=== PATIENT | female | born 2000 | race Caucasian/White ===

== ENCOUNTER 2023-09-29 04:39 | Emergency (ER) | payer OTHER, SELFPAY ==
[2023-09-29 04:41] VITALS: BP 124/80
[2023-09-29 05:05] VITALS: BMI 31.1
[2023-09-29 05:12] VITALS: BP 117/73
[2023-09-29 05:18] VITALS: BP 117/73
[2023-09-29 05:19] LABS: % Basophils 0.3 % (0-2); % Eosinophils 1.8 % (0-6); % Immature Granulocytes 0.3 % (0-0.5); % Lymphocytes 28.7 % (20.5-51.1); % Monocytes 7.5 % (1.7-9.3); % Neutrophils 61.4 % (42.2-75.2); Absolute Eosinophils 0.2 10^3/uL (0-0.7); Absolute Lymphocytes 2.6 10^3/uL (1.2-3.4); Absolute Monocytes 0.7 10^3/uL (0.1-0.6); Absolute Neutrophils 5.5 10^3/uL (1.4-6.5); Hematocrit 38.3 % (37.0-47.0); Hemoglobin 13.3 g/dL (12.0-16.0); Mean Corp Hgb Conc. 34.7 g/dL (33.0-37.0); Mean Corpuscular Hgb 30.4 pg (27.0-31.0); Mean Corpuscular Volume 87.4 fL (81.0-99.0); Mean Platelet Volume 8.5 fL (7.4-10.4); Nucleated Red Blood Cells % 0 %; Platelet Count 198 10^3/uL (130-400); Red Blood Cell Count 4.38 10^6/uL (4.20-5.40); Red Cell Dist. Width 13.2 % (11.5-14.5)
[2023-09-29 05:44] LABS: Troponin I < 0.012 ng/ml
[2023-09-29 05:51] LABS: AST (SGOT) 18 U/L (14-36); Albumin 4.1 g/dl (3.5-5.0); Blood Urea Nitrogen 12 mg/dl (7-17); Calcium 9.4 mg/dl (8.4-10.2); Carbon Dioxide 23 mmol/L (22-30); Chloride 106 mmol/L (98-107); Estimated Creatinine Clearance 91 ml/min; Glucose 106 mg/dl (70-99); Potassium 3.2 mmol/L (3.5-5.1); Sodium 137 mmol/L (135-145); Total Bilirubin 0.4 mg/dl (0.2-1.3); Total Protein 6.7 g/dl (6.3-8.2); eGFR > 60.00
[2023-09-29 05:55] LABS: HCG, Serum Qualitative Screen Negative
[2023-09-29 06:00] VITALS: BP 115/71
--- NOTE | 2023-09-29 06:02 | ED.GENMED ---
History of Present Illness
General
Chief Complaint: Chest Pain
Time Seen by Provider: 09/29/23 06:01
Travel History
Have you had any contact with someone who has COVID-19?: No
Do you have any symptoms of coronavirus? Fever > 100 degrees, chills, cough, shortness of breath, sore throat, loss of taste or smell, muscle aches, or headache?: No
History of Present Illness
History of Present Illness:
HPI: The patient went to bed at 1:30 AM and woke due to left-sided chest pain that radiates to the back at about 4 AM. The pain was more severe earlier but is now improved. She also reports dizziness however the dizziness is a chronic issue. She
tried taking her and heartburn medication earlier. She has no significant shortness of breath. The pain is reproducible.
EXAM:
GENERAL: Well appearing in no distress
HEENT: Moist oral mucosa
CARDIOVASCULAR: No murmurs, normal heart rate, regular rhythm, moderate left anterior chest wall tenderness
PULMONARY: No respiratory distress, breath sounds are clear and equal
ABDOMEN: Soft with no peritoneal signs, no tenderness
BACK: There is moderate left upper back soft tissue tenderness
NEUROLOGIC: Excellent strength all extremities, no coordination deficits
PSYCHIATRIC: Appropriate mental status, normal insight and judgement
EXTREMITIES: Nontender, no edema, moves all extremities equally
SKIN: No rash, no lesions
TIME OF INITIAL ENCOUNTER: 6:05 AM
NUMBER AND COMPLEXITY OF PROBLEMS ADDRESSED AT THE ENCOUNTER
� Chronic conditions affecting care: Chronic dizziness
� Acute Exacerbation and/or Progression of Chronic Illness: This is an acute problem
� Differential Diagnosis includes: Costochondritis, chest wall pain, GERD, very low likelihood of ACS, vital signs not consistent with PE
AMOUNT AND/OR COMPLEXITY OF DATA TO BE REVIEWED AND ANALYZED
� I performed an independent evaluation of and my interpretation is:
EKG: Sinus 76, normal axis, no acute ST abnormality, no old to compare
CT:
X-rays: I see no acute abnormality on chest x-ray
Laboratory Studies: CBC, chemistries except for potassium 3.2 are normal, troponin negative
Other:
� Review of other/old records: I look at old records�the patient has not been to the ED since 2007; no recent lab work
� Clinical information was obtained by an independent historian: None needed
� Prescriptions/Medications Considered but not given:
� Further testing considered but not performed:
RISK OF COMPLICATIONS AND/OR MORBIDITY OR MORTALITY OF PATIENT MANAGEMENT
� Social determinants of health affecting care: Lives at home
� Discussion with other providers:
� Escalation of care including admission/observation vs risk of discharge considered: The patient presents with reproducible chest/back pain. Toradol was given. Will also check chest x-ray. Very low suspicion for ACS�troponin
EKG unremarkable. I reassessed patient at 7:48 AM, the patient appears fairly comfortable. She thinks there may have been some improvement after Toradol was given.
Phy Exam
Physical Exam
Physical Exam:
See HPI
Scores
Heart Score for Chest Pain Patients
STEMI patient?: Not applicable
Course
Orders/Labs/Results
Orders:
Orders
09/29/23 04:47
Electrocardiogram (*1) Urgent
Reason for Study: Chest Pain
EKG- Treatment ONCE
09/29/23 05:05
Cardiac Monitoring- Treatment ONCE
Test Result ONCE
09/29/23 05:06
CMP [Comprehensive Metabolic Panel] Urgent
Complete Blood Count/With Diff Urgent
HCG, Serum Qualitative Screen Urgent
Troponin I Urgent
09/29/23 06:04
Potassium Chloride [KCl] 40 meq PO NOW STA
09/29/23 06:10
Famotidine [Pepcid] 20 mg IV NOW STA
Ketorolac [Toradol] 15 mg IV NOW STA
CR Chest - 2 Views Urgent
Comment:
Reason For Exam: L CP / back pain
Abnormal Lab Results
09/29/23
05:06
Absolute Monos (auto) 0.7 H 10^3/uL
(0.1-0.6)
Potassium 3.2 L mmol/L
(3.5-5.1)
Glucose 106 H mg/dl
(70-99)
09/29/23 05:06
09/29/23 05:06
Vital Signs
Initial and Last Documented VS:
Initial Vital Signs
Temp Pulse Resp BP Pulse Ox
98 F 96 24 124/80 100
09/29/23 04:41 09/29/23 04:41 09/29/23 04:41 09/29/23 04:41 09/29/23 04:41
Last Documented Vital Signs
Temp Pulse Resp BP Pulse Ox
98 F 73 13 115/71 99
09/29/23 04:41 09/29/23 06:45 09/29/23 06:45 09/29/23 06:00 09/29/23 06:15
*Critical Care Note
Total Time (30-74mins, 75-104mins- exclusive of procedures): Not Applicable
ED Attending Note
-
Portions of this chart may have been created with voice recognition software.� Occasional wrong word or��sound alike� substitutions may have occurred due to the inherent limitations of voice recognition software.
Discharge Plan
Departure
Prescriptions:
No Action
dextroamphetamine-amphetamine [Adderall] 20 mg Tablet
20 mg PO DAILY
fluoxetine 20 mg Capsule
20 mg PO DAILY
dextroamphetamine-amphetamine [Adderall XR] 25 mg Capsule,Extended Release 24hr
25 mg PO DAILY
aripiprazole [Abilify] 5 mg Tablet
5 mg PO DAILY
Referrals:
PRIVATE,PHYSICIAN [Family Provider] -
Interventions
Interventions:
*Risk Screen - Suicide Last Done: 09/29/23 04:41
*General Assessment Last Done: 09/29/23 05:05
*Neglect/Abuse Screening Last Done: 09/29/23 04:41
ED- Fall Risk Assessment Last Done: 09/29/23 05:15
*ED COVID-19 Vaccine History Last Done: 09/29/23 05:05
ED- Cardiac Assessment Last Done: 09/29/23 05:15
ED-Musculoskeletal Assessment Last Done: 09/29/23 05:15
ED- Neurological Assessment Last Done: 09/29/23 05:15
Discharge Date and Time
Print Language: ARMENIAN
[2023-09-29 06:08] LABS: ALT (SGPT) 20 U/L (0-35); Alkaline Phosphatase 61 U/L (38-126)
[2023-09-29] MEDS: PEPCID 20 MG IV (06:18)
[2023-09-29] MEDS: KCL 40 MEQ PO (06:18)
[2023-09-29] MEDS: PEPCID IV (06:18)
[2023-09-29] MEDS: TORADOL 15 MG IV (06:24)
[2023-09-29 08:11] VITALS: BP 104/77
== END 2023-09-29 08:17 | disposition home or self-care (01) ==
LOC: EMR 04:39
PROVIDERS: Emergency Medicine; EMERGENCY PHYSICIAN Emergency Medicine
DX: R07.89 Other chest pain (principal)
CPT/HCPCS: 99285; 96374; 96375; 71046; 80053; 84484; 84703; 85025; 93005

== ENCOUNTER 2023-12-04 00:40 | Emergency (ER) | payer OTHER, SELFPAY ==
[2023-12-04 00:42] VITALS: BP 134/90
[2023-12-04 00:57] VITALS: BMI 31.0
[2023-12-04] MEDS: NSS 1000 IV (01:31)
[2023-12-04 01:34] LABS: % Basophils 0.5 % (0-2); % Eosinophils 1.4 % (0-6); % Immature Granulocytes 0.2 % (0-0.5); % Lymphocytes 19.1 % (20.5-51.1); % Monocytes 5.7 % (1.7-9.3); % Neutrophils 73.1 % (42.2-75.2); Absolute Basophils 0.1 10^3/uL (0-0.2); Absolute Eosinophils 0.2 10^3/uL (0-0.7); Absolute Lymphocytes 2.3 10^3/uL (1.2-3.4); Absolute Monocytes 0.7 10^3/uL (0.1-0.6); Absolute Neutrophils 8.8 10^3/uL (1.4-6.5); Hematocrit 37.4 % (37.0-47.0); Hemoglobin 13.2 g/dL (12.0-16.0); Mean Corp Hgb Conc. 35.3 g/dL (33.0-37.0); Mean Corpuscular Hgb 30.6 pg (27.0-31.0); Mean Corpuscular Volume 86.6 fL (81.0-99.0); Mean Platelet Volume 8.4 fL (7.4-10.4); Nucleated Red Blood Cells % 0 %; Platelet Count 229 10^3/uL (130-400); Red Blood Cell Count 4.32 10^6/uL (4.20-5.40); Red Cell Dist. Width 13.2 % (11.5-14.5); White Blood Cell Count 12.1 10^3/uL (4.8-10.8)
[2023-12-04 01:45] LABS: HCG, Serum Qualitative Screen Negative
[2023-12-04 01:47] LABS: ALT (SGPT) 22 U/L (0-35); AST (SGOT) 22 U/L (14-36); Albumin 4.4 g/dl (3.5-5.0); Alkaline Phosphatase 79 U/L (38-126); Blood Urea Nitrogen 8 mg/dl (7-17); Calcium 9.6 mg/dl (8.4-10.2); Carbon Dioxide 23 mmol/L (22-30); Chloride 109 mmol/L (98-107); Estimated Creatinine Clearance > 125 ml/min; Glucose 95 mg/dl (70-99); Lipase 91 U/L (23-300); Potassium 3.8 mmol/L (3.5-5.1); Sodium 142 mmol/L (135-145); Total Bilirubin 0.8 mg/dl (0.2-1.3); Total Protein 7.3 g/dl (6.3-8.2); eGFR > 60.00
[2023-12-04] MEDS: OFIRMEV 100 IV (02:09)
--- NOTE | 2023-12-04 02:51 | ED.GENMED ---
Addendum entered and electronically signed by Praful Bowles PA-C 12/04/23 17:24:
Pt returned call, notified of positive chlamydia
Addendum entered and electronically signed by Soto Arreaga Jr., PA-C 12/04/23 14:45:
Patient's chlamydia test came back positive. She was called twice and a voicemail was left. Patient's report was then placed in the bin for a letter to be sent. She was given information to call back.
Original Note:
History of Present Illness
General
Chief Complaint: Abdominal Pain
Source: patient
Exam Limitations: none
Time Seen by Provider: 12/04/23 00:47
Nursing documentation reviewed up to this point in time: agreed with
Travel History
Have you had any contact with someone who has COVID-19?: No
Do you have any symptoms of coronavirus? Fever > 100 degrees, chills, cough, shortness of breath, sore throat, loss of taste or smell, muscle aches, or headache?: No
History of Present Illness
History of Present Illness:
This is a 23-year-old woman with history of anxiety/depression, ADD currently not on any of her psychiatric medications for the past month or 2 due to brief lapse in healthcare coverage.
She presents with 2-week history of suprapubic/generalized lower abdominal pain that seems to come and go with intermittent episodes of severe lower abdominal pain that causes her to buckle over. She does admit to occasional radiation of the pain
around to her back but denies flank pain, no dysuria no urgency. She does admit to mildly increased urinary frequency but has been attempting to increase her clear liquids over the past several weeks.
She has not had a fever nor chills, no vaginal discharge.
She has IUD in place for at least the past 2 to 3 years. Has not had menstrual period since IUD placed.
No history of similar episodes of pain, no prior history of STD nor ovarian cyst.
She does admit to mild constipation but passed a normal soft bowel movement around 3 PM today. No change in pain with bowel movement.
With intermittent severe episodes of pain she admits to intermittent nausea but has had no vomiting.
With onset of severe pain tonight she took 1200 mg of ibuprofen, now with moderate but not complete relief.
Past History
Past History
ED Past Medical History: Psychiatric and Other (Migraine headaches)
ED Past Surgical History: None
Social History
Tobacco: Vaping (Nicotine)
Alcohol: None
Drug: None
Personal: Single
Living: with family
Family History
Family History: Other (Noncontributory)
Phy Exam
Physical Exam
Physical Exam:
GENERAL: 23-year-old female appears her stated age, awake and alert, mildly anxious/apprehensive but easily communicative and cooperative.
EYE: anicteric
NECK: Supple, nontender, no meningismus, no significant adenopathy.
ENT: oral mucosa is moist. No rhinorrhea.
CARDIAC: Regular rate and rhythm. no murmur.
LUNGS: Clear breath sounds bilaterally, no acute respiratory distress, no wheezes/rales/rhonchi
ABDOMEN: Soft, nondistended, mild to moderate generalized tenderness with deep palpation only to the lower abdomen, no r/g, no palpable masses, no cvat. normoactive BS.
NEUROLOGICAL: Alert and oriented x3, no focal neuro deficits. Gait is quevedo and steady.
SKIN: Warm and dry, normal color, skin intact. No rash.
MUSCULOSKELETAL: No C/C/E. peripheral pulses are full and equal b/l. No palpable tenderness.
PSYCH: Normal and appropriate interaction.
Course
Orders/Labs/Results
Orders:
Orders
12/04/23 01:10
US Pelvis Only (non-obstetric) Urgent
Comment:
Reason For Exam: 2 week hx intermittent, severe pelvic pain
12/04/23 01:27
Complete Blood Count/With Diff Urgent
Comprehensive Metabolic Panel Urgent
HCG, Serum Qualitative Screen Urgent
Lipase Urgent
Urinalysis Reflex To Culture Urgent
Date Specimen was Collected: 12/04/23
Time Specimen was Collected: 00:54
Urine Microscopic Reflex Cult Urgent
Urine Culture Urgent
MARAH Source: U
Specimen Description:
Date Specimen was Collected: 12/04/23
Time Specimen was Collected: 00:54
12/04/23 01:29
0.9% Sodium Chloride 1000 ml [Nss] 1,000 ml IV BOLUS
12/04/23 02:06
0.9% Sodium Chloride 1000 ml [Nss] 1,000 ml IV BOLUS
Acetaminophen 1000MG/100Ml [Ofirmev] 1,000 mg in 100 ml IV ONCE
Acetaminophen IV Indication:: ED Narcotic Naive Pt-ONCE
12/04/23 03:51
CT Abd/pelvis W Iv Cont Urgent
Comment:
Reason For Exam: 2 week hx gen lower abd pain
12/04/23 04:18
Chlamydia/GC by PCR Urgent
MARAH Source: Endo-Cervical
Specimen Description:
Source:: ENDOCERVICAL
Date Specimen was Collected: 12/04/23
Time Specimen was Collected: 04:01
Genital Culture Urgent
MARAH Source: Cervix
Specimen Description:
Date Specimen was Collected: 12/04/23
Time Specimen was Collected: 04:01
12/04/23 05:01
Ketorolac [Toradol] 30 mg .ROUTE .STK-MED ONE
12/04/23 05:04
Ketorolac [Toradol] 30 mg IV NOW STA
12/04/23 05:24
Azithromycin [Zithromax] 1,000 mg PO NOW STA
CefTRIAXone [Rocephin] 1,000 mg IV NOW STA
Abnormal Lab Results
12/04/23
01:27
WBC 12.1 H 10^3/uL
(4.8-10.8)
Absolute Neuts (auto) 8.8 H 10^3/uL
(1.4-6.5)
Absolute Monos (auto) 0.7 H 10^3/uL
(0.1-0.6)
Lymphocytes % 19.1 L %
(20.5-51.1)
Chloride 109 H mmol/L
(98-107)
Urine Ketones 3+ A
(Negative)
Ur Occult Blood Reflex 3+ A
(Negative)
Urine RBC 40-50 A /HPF
(0-2)
Urine Bacteria (Reflex) Moderate A
(Negative)
12/04/23 01:27
12/04/23 01:27
Vital Signs
Initial and Last Documented VS:
Initial Vital Signs
Temp Pulse Resp BP Pulse Ox
98.7 F 98 22 134/90 100
12/04/23 00:42 12/04/23 00:42 12/04/23 00:42 12/04/23 00:42 12/04/23 00:42
Last Documented Vital Signs
Temp Pulse Resp BP Pulse Ox
98.6 F 87 18 126/84 100
12/04/23 03:31 12/04/23 05:09 12/04/23 05:09 12/04/23 05:09 12/04/23 05:09
MDM/Problems Addressed
Differential Diagnosis Includes:
Concern for ovarian cyst, intermittent ovarian torsion, UTI, constipation, less likely STD, ectopic . Intermittent episodes over the past 2 weeks, appendicitis is unlikely as well.
Chronic conditions affecting care: Psychiatric illness
*Radiology
Radiology exam reviewed: radiology read reviewed (Pelvic ultrasound essentially unremarkable. IUD is present in the uterus, may be low-lying. Ovaries are unremarkable. Vascular flow is documented bilaterally. Trace free fluid.)
*Pulse Oximetry
Patient hypoxic: no
*Critical Care Note
Total Time (30-74mins, 75-104mins- exclusive of procedures): Not Applicable
Update Note
Update Note:
12/04/2023 0354 AM
Pelvic ultrasound essentially unremarkable.
Patient resting comfortably after IV Tylenol. Continues with mild lower abdominal pain but markedly improved.
Pelvic exam reveals moderate yellowish to pearly discharge from cervix. IUD string is in place extruding from the cervix. There is moderate cervical motion tenderness.
Concern for early pelvic infection/PID. Other consideration is focal distal colitis, less likely appendicitis thus will check CT of the abdomen and pelvis. If this is unremarkable we will treat for potential PID with Rocephin and Zithromax.
Cervical cultures obtained.
12/04/[address] abdomen pelvis is unremarkable.
Patient has been given IV Zofran and oral dose of Zithromax for treatment of potential early PID.
Recommend continuing ibuprofen as needed for pain but to limit the dose to 800 mg every 6 hours as needed for discomfort. Local heating pad may be helpful as well.
Will refer to [facility] for follow-up.
Return precautions discussed.
ED Attending Note
-
Portions of this chart may have been created with voice recognition software.� Occasional wrong word or��sound alike� substitutions may have occurred due to the inherent limitations of voice recognition software.
Discharge Plan
Departure
Patient Disposition: Home (Routine Discharge)
Date of Disposition: 12/04/23
Time of Disposition: 06:08
Patient with high blood pressure during this ER visit?: No
Condition: Good
Discharge Problem:
Acute pelvic pain, female
Instructions: Pelvic Pain, Pelvic Inflammatory Disease ED
Prescriptions:
No Action
dextroamphetamine-amphetamine [Adderall] 20 mg Tablet
20 mg PO DAILY
fluoxetine 20 mg Capsule
20 mg PO DAILY
aripiprazole [Abilify] 5 mg Tablet
5 mg PO DAILY
Referrals:
Zeynep Vasquez, DO [Active] - Call in 1-3 days for appt
UNKNOWN - PT DOES,NOT KNOW [Family Provider] -
Interventions
Interventions:
*Risk Screen - Suicide Last Done: 12/04/23 00:42
*General Assessment Last Done: 12/04/23 00:42
*Neglect/Abuse Screening Last Done: 12/04/23 00:42
ED- Fall Risk Assessment Last Done: 12/04/23 00:42
*ED COVID-19 Vaccine History Last Done: 12/04/23 00:42
UL-Rbgsko-Pfhhmegumv Assessment Last Done: 12/04/23 00:59
Discharge Date and Time
Print Language: VIETNAMESE
[2023-12-04 03:31] VITALS: BP 129/87
[2023-12-04 03:35] LABS: Urine Albumin Negative (Neg - Trace); Urine Bilirubin Negative (Negative); Urine Character Clear (Clear); Urine Color Yellow; Urine Glucose Negative (Negative); Urine Ketone 3+ (Negative); Urine Leukocyte Negative (Negative); Urine Nitrite Negative (Negative); Urine Occult Blood 3+ (Negative); Urine Specific Gravity 1.015 (<1.030); Urine Urobilinogen Negative (Neg - 1+); Urine pH 6.5 (5.0-9.0)
[2023-12-04 05:00] LABS: Urine Mucus Many; Urine Squamous Cell >30 /LPF (Few)
[2023-12-04 05:01] LABS: Urine Bacteria Moderate (Negative); Urine Red Blood Cell 40-50 /HPF (0-2)
[2023-12-04] MEDS: TORADOL 30 MG IV (05:04)
[2023-12-04 05:09] VITALS: BP 126/84
[2023-12-04] MEDS: ZITHROMAX 1000 MG PO (05:48)
[2023-12-04] MEDS: ROCEPHIN 1000 MG IV (05:49)
== END 2023-12-04 06:33 | disposition home or self-care (01) ==
LOC: EMR 00:40
PROVIDERS: EMERGENCY PHYSICIAN Emergency Medicine
DX: R10.2 Pelvic and perineal pain (principal); F17.290 Nicotine dependence, other tobacco product, uncomplicated; K59.00 Constipation, unspecified
CPT/HCPCS: 99283; 96374; 96375; 96361; 74177; 76856; 80053; 81003; 81015; 83690; 84703; 85025; 87070; 87086; 87491; 87591; Q9967

== ENCOUNTER 2024-07-19 15:28 | Emergency (ER) | payer OTHER, SELFPAY ==
[2024-07-19 15:42] VITALS: BP 124/79
--- NOTE | 2024-07-19 15:44 | ED.GENMED ---
ED Provider Triage
<Tutu Bermudez PA-C - Last Filed: 07/19/24 15:44>
-
Patient seen by provider in Triage?: Seen in Triage
Attestation: A medical screening examination has been initiated by a qualified medical provider. Based on the assessment performed at this time, it has been determined that an emergent medical condition may exist and the patient has been informed
that further medical evaluation and possible additional diagnostic testing may be needed.
HPI: 23-year-old presents with left-sided lower back pain that radiates to the right and occasionally to the. No urinary symptoms. No fevers. No known injury. No nausea. Pain does not go down the legs. No bowel or bladder dysfunction otherwise
Looks nontoxic at triage. Will check urine and basic labs
GENERAL: Alert , in no apparent distress
EYE: No visual abnormalities.
NECK: Trachea midline
ENT: No visible abnormalities.
LUNGS: No acute respiratory distress
NEUROLOGICAL: Alert and oriented
SKIN: Skin intact. No visible changes.
MUSCULOSKELETAL: Moving extremities normally
PSYCH: Normal and appropriate interaction.
This is a medical evaluation conducted in person to initiate diagnostic evaluation and provide initial therapeutics. Please see further documentation by the treating clinician.
History of Present Illness
<Tutu Bermudez PA-C - Last Filed: 07/19/24 15:44>
General
Chief Complaint: Back Pain
Time Seen by Provider: 07/19/24 18:20
<Pauline Alva NP - Last Filed: 07/19/24 23:09>
General
Source: patient
Exam Limitations: none
Nursing documentation reviewed up to this point in time: agreed with
History of Present Illness
History of Present Illness:
Patient to ED with complaint of left flank pain. Symptoms started approx 2 weeks ago. States now pain radiates to left groin. Denies fever/chills, n/v/d. No prior history of same.Brought self to ED for eval.
Past History
<Tutu Bermudez PA-C - Last Filed: 07/19/24 15:44>
Past History
ED Past Medical History: Psychiatric and Other (Migraine headaches)
ED Past Surgical History: None
Social History
Tobacco: Vaping (Nicotine)
Alcohol: None
Drug: None
Personal: Single
Living: with family
Family History
Family History: Other (Noncontributory)
Review of Systems
<Pauline Alva NP - Last Filed: 07/19/24 23:09>
Review of Systems
Allergies reviewed?: Yes
All Other Systems: ROS reviewed and negative except as documented in HPI and ROS
Constitutional: Reports no symptoms
EENT: Reports no symptoms
Respiratory: Reports no symptoms
Cardiac: Reports no symptoms
ABD/GI: Reports no symptoms
: Reports flank pain
Musculoskeletal: Reports back pain (Left flank pain)
Skin: Reports no symptoms
Neurological: Reports no symptoms
Psychiatric: Reports no symptoms
Phy Exam
<Pauline Alva NP - Last Filed: 07/19/24 23:09>
General Physical Exam
General Presentation: well appearing and no apparent distress
General age: appears stated age
General Skin: warm and dry
General Habitus: normal
Cardiovascular Exam
Cardiovascular Exam: regular rate/rhythm
Pulmonary Exam
Pulmonary Exam: lungs clear and no respiratory distress
Gastrointestinal Exam
Gastrointestinal Exam: normal bowel sounds, non tender, soft, no organomegaly, no pulsatile mass, non distended, no cva tenderness and cva tenderness
Musculoskeletal Exam
Musculoskeletal Exam: full ROM and neuro vasc intact
Skin Exam
Skin Exam: normal color, warm/dry and no rash
Psychiatric Exam
Psychiatric Exam: normal mood/affect
Course
<Tutu Bermudez PA-C - Last Filed: 07/19/24 15:44>
Orders/Labs/Results
Orders:
Orders
07/19/24 15:43
Test Result ONCE
07/19/24 15:49
Complete Blood Count/With Diff Urgent
Comprehensive Metabolic Panel Urgent
HCG, Serum Qualitative Screen Urgent
07/19/24 18:15
Urinalysis Reflex To Culture Urgent
Date Specimen was Collected: 07/19/24
Time Specimen was Collected: 18:14
Urine Microscopic Reflex Cult Urgent
Urine Culture Urgent
MARAH Source: U
Specimen Description:
Date Specimen was Collected: 07/19/24
Time Specimen was Collected: 18:14
07/19/24 18:42
US Renal Only W/O Bladder Urgent
Comment:
Reason For Exam: left flank pain
Abnormal Lab Results
07/19/24 07/19/24
15:49 18:15
Glucose 101 H mg/dl
(70-99)
Leukocyte Esterase Rfl 1+ A
(Negative)
Urine Bacteria (Reflex) Few A
(Negative)
07/19/24 15:49
07/19/24 15:49
Vital Signs
Initial and Last Documented VS:
Initial Vital Signs
Temp Pulse Resp BP Pulse Ox
98.5 F 97 16 124/79 99
07/19/24 15:42 07/19/24 15:42 07/19/24 15:42 07/19/24 15:42 07/19/24 15:42
Last Documented Vital Signs
Temp Pulse Resp BP Pulse Ox
98.5 F 62 18 120/76 99
07/19/24 15:42 07/19/24 19:51 07/19/24 19:51 07/19/24 19:51 07/19/24 15:42
<Pauline Alva NP - Last Filed: 07/19/24 23:09>
Orders/Labs/Results
Orders:
Orders
07/19/24 15:43
Test Result ONCE
07/19/24 15:49
Complete Blood Count/With Diff Urgent
Comprehensive Metabolic Panel Urgent
HCG, Serum Qualitative Screen Urgent
07/19/24 18:15
Urinalysis Reflex To Culture Urgent
Date Specimen was Collected: 07/19/24
Time Specimen was Collected: 18:14
Urine Microscopic Reflex Cult Urgent
Urine Culture Urgent
MARAH Source: U
Specimen Description:
Date Specimen was Collected: 07/19/24
Time Specimen was Collected: 18:14
07/19/24 18:42
US Renal Only W/O Bladder Urgent
Comment:
Reason For Exam: left flank pain
Abnormal Lab Results
07/19/24 07/19/24
15:49 18:15
Glucose 101 H mg/dl
(70-99)
Leukocyte Esterase Rfl 1+ A
(Negative)
Urine Bacteria (Reflex) Few A
(Negative)
07/19/24 15:49
07/19/24 15:49
Vital Signs
Initial and Last Documented VS:
Initial Vital Signs
Temp Pulse Resp BP Pulse Ox
98.5 F 97 16 124/79 99
07/19/24 15:42 07/19/24 15:42 07/19/24 15:42 07/19/24 15:42 07/19/24 15:42
Last Documented Vital Signs
Temp Pulse Resp BP Pulse Ox
98.5 F 62 18 120/76 99
07/19/24 15:42 07/19/24 19:51 07/19/24 19:51 07/19/24 19:51 07/19/24 15:42
<Pauline Alva SOLDERING MACHINE OPERATOR HELPER - Last Filed: 07/19/24 23:09>
*Radiology
Radiology exam reviewed: radiology read reviewed
*Pulse Oximetry
Patient hypoxic: no
ED Attending Note
<Tutu Bermudez PA-C - Last Filed: 07/19/24 15:44>
-
Portions of this chart may have been created with voice recognition software.� Occasional wrong word or��sound alike� substitutions may have occurred due to the inherent limitations of voice recognition software.
Discharge Plan
Departure
Patient Disposition: Home (Routine Discharge)
Date of Disposition: 07/19/24
Time of Disposition: 19:41
Patient with high blood pressure during this ER visit?: No
Condition: Good
Covid-19: Not Applicable
Discharge Problem:
Back pain
Instructions: Back Pain
Prescriptions:
New
cyclobenzaprine 10 mg tablet
10 mg PO HS PRN (Reason: muscle tightness/spasms) Qty: 7 0RF
hydrocodone-acetaminophen 5-325 mg tablet
1 tab PO Q4H PRN (Reason: Pain) Qty: 5 0RF
No Action
dextroamphetamine-amphetamine [Adderall] 20 mg Tablet
20 mg PO DAILY
fluoxetine 20 mg Capsule
20 mg PO DAILY
aripiprazole [Abilify] 5 mg Tablet
5 mg PO DAILY
Referrals:
[facility] [[facility]] - Next open appointment
NONE,* [Family Provider] -
Stand Alone Forms: Return to Work
Interventions
Interventions:
*Risk Screen - Suicide Last Done: 07/19/24 15:42
*General Assessment Last Done: 07/19/24 15:42
*Neglect/Abuse Screening Last Done: 07/19/24 15:42
ED- Fall Risk Assessment Last Done: 07/19/24 18:27
*ED COVID-19 Vaccine History Last Done: 07/19/24 15:42
*Nursing Disposition Last Done: 07/19/24 19:51
ED-Musculoskeletal Assessment Last Done: 07/19/24 18:27
Discharge Date and Time
Discharge Date/Time: 07/19/24 19:52
Print Language: THAI
[2024-07-19 16:01] LABS: % Basophils 1.1 % (0-2); % Eosinophils 3.2 % (0-6); % Immature Granulocytes 0.2 % (0-0.5); % Lymphocytes 30.6 % (20.5-51.1); % Monocytes 8.1 % (1.7-9.3); % Neutrophils 56.8 % (42.2-75.2); Absolute Basophils 0.1 10^3/uL (0-0.2); Absolute Eosinophils 0.2 10^3/uL (0-0.7); Absolute Lymphocytes 1.7 10^3/uL (1.2-3.4); Absolute Monocytes 0.5 10^3/uL (0.1-0.6); Absolute Neutrophils 3.2 10^3/uL (1.4-6.5); Hematocrit 42.9 % (37.0-47.0); Hemoglobin 14.2 g/dL (12.0-16.0); Mean Corp Hgb Conc. 33.1 g/dL (33.0-37.0); Mean Corpuscular Hgb 29.9 pg (27.0-31.0); Mean Corpuscular Volume 90.3 fL (81.0-99.0); Mean Platelet Volume 8.4 fL (7.4-10.4); Nucleated Red Blood Cells % 0 %; Platelet Count 207 10^3/uL (130-400); Red Blood Cell Count 4.75 10^6/uL (4.20-5.40); Red Cell Dist. Width 12.9 % (11.5-14.5); White Blood Cell Count 5.7 10^3/uL (4.8-10.8)
[2024-07-19 16:14] LABS: HCG, Serum Qualitative Screen Negative
[2024-07-19 16:17] LABS: ALT (SGPT) 20 U/L (0-35); AST (SGOT) 19 U/L (14-36); Albumin 4.8 g/dl (3.5-5.0); Alkaline Phosphatase 59 U/L (38-126); Blood Urea Nitrogen 9 mg/dl (7-17); Calcium 9.7 mg/dl (8.4-10.2); Carbon Dioxide 26 mmol/L (22-30); Chloride 105 mmol/L (98-107); Glucose 101 mg/dl (70-99); Potassium 4.6 mmol/L (3.5-5.1); Sodium 140 mmol/L (135-145); Total Bilirubin 0.6 mg/dl (0.2-1.3); Total Protein 7.1 g/dl (6.3-8.2); eGFR > 60.00
[2024-07-19 18:25] LABS: Urine Albumin Negative (Neg - Trace); Urine Bilirubin Negative (Negative); Urine Character Slightly Cloudy (Clear); Urine Color Yellow; Urine Glucose Negative (Negative); Urine Ketone Negative (Negative); Urine Leukocyte 1+ (Negative); Urine Nitrite Negative (Negative); Urine Occult Blood Negative (Negative); Urine Urobilinogen Negative (Neg - 1+)
[2024-07-19 18:26] VITALS: BMI 31.0
[2024-07-19 18:31] VITALS: BP 119/75
[2024-07-19 18:39] LABS: Urine Squamous Cell 21-25 /LPF (Few)
[2024-07-19 18:40] LABS: Urine Bacteria Few (Negative); Urine Red Blood Cell 0-2 /HPF (0-2); Urine White Cell 0-2 /HPF (0-5)
[2024-07-19 19:51] VITALS: BP 120/76
== END 2024-07-19 19:52 | disposition home or self-care (01) ==
LOC: EMR 15:28
PROVIDERS: Physician Assistant; EMERGENCY PHYSICIAN Emergency Medicine
DX: M54.50 Low back pain, unspecified (principal); F17.290 Nicotine dependence, other tobacco product, uncomplicated
CPT/HCPCS: 99284; 76775; 80053; 81003; 81015; 84703; 85025; 87086

== ENCOUNTER 2024-11-22 06:29 | Outpatient (RCR) | payer OTHER, SELFPAY | END 2024-11-22 23:59 | disposition home or self-care (01) | LOC: ROT 06:29 | PROVIDERS: ATTENDING PHYSICIAN Physician Assistant; FAMILY PHYSICIAN Nurse Practitioner Adult Health | DX: S62.309D Unspecified fracture of unspecified metacarpal bone, subsequent encounter for fracture with routine healing (principal); Z73.6 Limitation of activities due to disability | CPT/HCPCS: 97760 ==

== ENCOUNTER 2024-12-07 03:04 | Emergency (ER) | payer OTHER, SELFPAY ==
[2024-12-07 03:10] VITALS: BP 128/74
[2024-12-07 04:08] LABS: Hematocrit 37.7 % (37.0-47.0); Hemoglobin 13.2 g/dL (12.0-16.0); Mean Corpuscular Hgb 30.9 pg (27.0-31.0); Mean Corpuscular Volume 88.3 fL (81.0-99.0); Mean Platelet Volume 8.4 fL (7.4-10.4); Platelet Count 207 10^3/uL (130-400); Red Blood Cell Count 4.27 10^6/uL (4.20-5.40); Red Cell Dist. Width 13.1 % (11.5-14.5); White Blood Cell Count 17.4 10^3/uL (4.8-10.8)
[2024-12-07 04:23] LABS: Monotest Positive (Negative)
[2024-12-07 05:17] VITALS: BMI 30.7
--- NOTE | 2024-12-07 07:25 | ED.GENMED ---
History of Present Illness
General
Chief Complaint: Throat Problem
Source: patient
Exam Limitations: none
Time Seen by Provider: 12/07/24 06:30
Nursing documentation reviewed up to this point in time: agreed with
History of Present Illness
History of Present Illness:
24-year-old female presents to the ER for evaluation of sore throat. Patient reports onset of symptoms about 4 days ago and have been constant since that time. She reports sore throat worse with swallowing. She reports some intermittent
fullness/popping of the ears. She reports fatigue and myalgias. She says she has some hoarseness of her voice. She reported some shortness of breath in triage denies on my assessment. Denies coughing. She denies any has any drooling, trismus or
any other acute complaints.
Past History
Past History
ED Past Medical History: Psychiatric and Other (Migraine headaches)
ED Past Surgical History: None
Social History
Tobacco: Vaping (Nicotine)
Alcohol: None
Drug: None
Personal: Single
Living: with family
Family History
Family History: Other (Noncontributory)
Review of Systems
Review of Systems
All Other Systems: ROS reviewed and negative except as documented in HPI and ROS
Constitutional: Reports fatigue; Denies fever
EENT: Reports sore throat and other (Rhinorrhea, ear fullness)
Respiratory: Denies cough or trouble breathing
Cardiac: Denies chest pain
ABD/GI: Denies abdominal pain, nausea, vomiting or diarrhea
Skin: Denies rash
Phy Exam
Physical Exam
Physical Exam:
General: Awake, alert, oriented x3; no acute distress
Head: Normocephalic, atraumatic
Eyes: Conjunctiva normal, EOMI
Ears: TMs clear bilaterally
Throat: Airway intact, handling secretions, no trismus or drooling; midline uvula without deviation or edema, she has bilateral erythema and enlargement of tonsils with exudate
Neck: Trachea midline, supple without meningismus; she has bilateral anterior cervical and submental adenopathy
Lungs: Breathing comfortably with no distress, no hypoxia or tachypnea
Heart: Tachycardia
Abd: Soft, non distended, nontender, no palpable hepatosplenomegaly
Neuro: No gross deficits
Skin: no rash
Extremities: Warm well-perfused
Scores
Heart Failure Risk
Heart Failure Risk Score: Not Applicable
Heart Score for Chest Pain Patients
STEMI patient?: Not applicable
Withdrawal Assessment of Alcohol
Withdrawal Assessment Completed?: Not applicable
Sepsis
Sepsis Screening
Sepsis Assessment: Sepsis Ruled Out
Sepsis Screen
Sepsis Screen: Sepsis Ruled Out
Date: 12/07/24
Time: 07:28
Course
Orders/Labs/Results
Orders:
Orders
12/07/24 03:51
CBC/No Diff [Complete Blood Count/No Diff] Urgent
Monotest Urgent
Rapid Strep Group A Urgent
MARAH Source: Throat/Pharynx
Specimen Description:
Date Specimen was Collected: 12/07/24
Time Specimen was Collected: 03:13
12/07/24 07:11
Acetaminophen [Tylenol] 1,000 mg PO NOW STA
Dexamethasone [Decadron] 10 mg PO NOW STA
Ketorolac [Toradol] 30 mg IM NOW STA
12/07/24 07:12
Encourage PO Hydration-Treatme ONCE
Abnormal Lab Results
12/07/24
03:51
WBC 17.4 H 10^3/uL
(4.8-10.8)
Monoscreen Positive A
(Negative)
12/07/24 03:51
Vital Signs
Initial and Last Documented VS:
Initial Vital Signs
Temp Pulse Resp BP Pulse Ox
37.2 C 104 20 128/74 100
12/07/24 03:10 12/07/24 03:10 12/07/24 03:10 12/07/24 03:10 12/07/24 03:10
Last Documented Vital Signs
Temp Pulse Resp BP Pulse Ox
37.2 C 104 20 128/74 96
12/07/24 03:10 12/07/24 03:10 12/07/24 03:10 12/07/24 03:10 12/07/24 06:45
MDM/Problems Addressed
Differential Diagnosis Includes:
Strep throat, mono, viral pharyngitis
MDM/Problems Addressed:
24-year-old female presents with sore throat, myalgias, hoarseness over the past few days. Vitals and exam as above�airway intact but she does have tonsillar enlargement with exudate. Midline uvula without deviation, no hot potato voice, drooling
or trismus to suggest peritonsillar abscess. She had a strep swab which was negative. Her Monospot is positive. She had a CBC sent in triage which is positive for leukocytosis in the setting of pharyngitis/tonsillitis. Will plan to treat with
dexamethasone, Toradol. Encourage fluids. Considered antibiotics but given negative strep swab and no signs of peritonsillar abscess no clear indication for antibiotic treatment�will trial supportive care for now, if not improving may be
reasonable to add empiric antibiotics. I did speak to the patient at length about avoiding activities which could precipitate splenic injury; we also talked about prevent spread to close contacts. Spoke about return precautions and follow-up plan.
All questions answered.
*Pulse Oximetry
SaO2: 96
Oxygen Mode of Delivery: Room air
Patient hypoxic: no (96%)
*Critical Care Note
Total Time (30-74mins, 75-104mins- exclusive of procedures): Not Applicable
Data Reviewed
Source: patient
Prescriptions/Medications Considered But Not Given:
Considered antibiotics
ED Attending Note
-
Portions of this chart may have been created with voice recognition software.� Occasional wrong word or��sound alike� substitutions may have occurred due to the inherent limitations of voice recognition software.
Discharge Plan
Departure
Patient with high blood pressure during this ER visit?: No
Discharge Problem:
Mononucleosis
Instructions: Mononucleosis (DC)
Prescriptions:
No Action
dextroamphetamine-amphetamine [Adderall] 20 mg Tablet
20 mg PO DAILY
fluoxetine 20 mg Capsule
20 mg PO DAILY
aripiprazole [Abilify] 5 mg Tablet
5 mg PO DAILY
Referrals:
UNKNOWN - PT DOES,NOT KNOW [Family Provider]
Activity Restrictions/Additional Instructions:
You should make sure you are drinking plenty of fluids. You should take Tylenol and ibuprofen as needed to help with throat pain and bodyaches. You should avoid contact sports/physical activity for at least 1 month due to potential for spleen
injury in the setting of mono. Should follow-up with her primary care physician within the next 1 to 2 weeks after your ER visit today. If you feel your symptoms are worsening, especially if you are having drooling, significant changes in voice,
trouble breathing or any other serious concerns you should return immediately to the ER to be evaluated.
Thank you for visiting the Emergency Department at [facility].
1. Please schedule a follow up appointment as directed. Call first thing tomorrow morning to make an appointment.
2. If indicated, please take your medications as instructed and indicated on discharge paperwork.
3. If any of your symptoms do not improve, or persist, or become more severe within 6-12 hours, please return to the emergency department for further care.
4. Please return to the emergency department if you develop a headache, neck pain/stiffness, fever greater than 100.4F, chest pain, shortness of breath, persistent nausea, vomiting, slurred speech, difficulty walking, numbness/tingling, weakness,
signs of infection or any other symptoms that are worrisome to you.
Please call [phone] if you have any questions.
Interventions
Interventions:
*Risk Screen - Suicide Last Done: 12/07/24 03:10
*General Assessment Last Done: 12/07/24 05:17
*Neglect/Abuse Screening Last Done: 12/07/24 03:10
*ED- Fall Risk Assessment Last Done: 12/07/24 05:17
*ED COVID-19 Vaccine History Last Done: 12/07/24 05:17
ED-EENT Assessment Last Done: 12/07/24 05:17
ED- Pulmonary Assessment Last Done: 12/07/24 05:17
Discharge Date and Time
Print Language: ROMANSH
[2024-12-07 07:35] VITALS: BP 115/71
[2024-12-07] MEDS: TORADOL 30 MG IM (07:51)
[2024-12-07] MEDS: DECADRON 10 MG PO (07:52)
[2024-12-07] MEDS: TYLENOL 1000 MG PO (07:52)
== END 2024-12-07 08:31 | disposition home or self-care (01) ==
LOC: EMR 03:04
PROVIDERS: Emergency Medicine; EMERGENCY PHYSICIAN Emergency Medicine
DX: B27.90 Infectious mononucleosis, unspecified without complication (principal); F17.290 Nicotine dependence, other tobacco product, uncomplicated
CPT/HCPCS: 99284; 96372; 85027; 86308; 87070; 87880

== ENCOUNTER 2024-12-08 20:36 | Emergency (ER) | payer OTHER, SELFPAY ==
[2024-12-08 20:38] VITALS: BP 137/83
[2024-12-08 21:03] LABS: % Basophils 0.4 % (0-2); % Eosinophils 1.4 % (0-6); % Immature Granulocytes 0.3 % (0-0.5); % Lymphocytes 18.8 % (20.5-51.1); % Monocytes 8.4 % (1.7-9.3); % Neutrophils 70.7 % (42.2-75.2); Absolute Basophils 0.1 10^3/uL (0-0.2); Absolute Eosinophils 0.2 10^3/uL (0-0.7); Absolute Lymphocytes 2.4 10^3/uL (1.2-3.4); Absolute Monocytes 1.1 10^3/uL (0.1-0.6); Hematocrit 38.5 % (37.0-47.0); Hemoglobin 13.2 g/dL (12.0-16.0); Mean Corp Hgb Conc. 34.3 g/dL (33.0-37.0); Mean Corpuscular Hgb 30.7 pg (27.0-31.0); Mean Corpuscular Volume 89.5 fL (81.0-99.0); Mean Platelet Volume 8.5 fL (7.4-10.4); Nucleated Red Blood Cells % 0 %; Platelet Count 244 10^3/uL (130-400); White Blood Cell Count 12.8 10^3/uL (4.8-10.8)
[2024-12-08 21:12] LABS: HCG, Serum Qualitative Screen Negative
[2024-12-08 21:17] LABS: ALT (SGPT) 21 U/L (0-35); AST (SGOT) 21 U/L (14-36); Albumin 4.6 g/dl (3.5-5.0); Alkaline Phosphatase 56 U/L (38-126); Blood Urea Nitrogen 16 mg/dl (7-17); Calcium 9.3 mg/dl (8.4-10.2); Carbon Dioxide 26 mmol/L (22-30); Chloride 106 mmol/L (98-107); Glucose 118 mg/dl (70-99); Potassium 3.6 mmol/L (3.5-5.1); Sodium 141 mmol/L (135-145); Total Bilirubin 0.5 mg/dl (0.2-1.3); Total Protein 7.4 g/dl (6.3-8.2); eGFR > 60.00
[2024-12-08 21:28] LABS: Troponin I < 0.012 ng/ml
[2024-12-08 22:32] VITALS: BP 107/69
[2024-12-08 23:15] VITALS: BP 119/79
--- NOTE | 2024-12-08 23:17 | ED.GENMED ---
History of Present Illness
General
Chief Complaint: Fainting Sensation
Source: patient
Exam Limitations: none
Time Seen by Provider: 12/08/24 23:03
Nursing documentation reviewed up to this point in time: agreed with
History of Present Illness
History of Present Illness:
24-year-old female with a history of bipolar disorder and anxiety presents for near syncope today at work around 8 PM. Patient says she has had symptoms of mono over the last 5 days with a sore throat, body aches, nausea and vomiting and fatigue.
She was here yesterday in the department and got diagnosed. She has been taking Tylenol and ibuprofen for pain. While she was here she was given a dose of steroids for her sore throat. Her throat pain to continue today but she was able to eat and
drink more normally than she had been the day before. She says she was busy on her shift at [employer] turning from [id number] and thinks she just got lightheaded, got tunnel vision and then went down onto her right knee. She never fully passed
out. She bounced right back up and had no abdominal strike. Patient says she has a mild pain to her right knee but is able to walk and move it. She denies head injury and loss of consciousness, chest pain, shortness of breath, abdominal or flank
pain.
Past History
Past History
ED Past Medical History: Psychiatric and Other (Migraine headaches)
ED Past Surgical History: None
Social History
Tobacco: Vaping (Nicotine)
Alcohol: None
Drug: None
Personal: Single
Living: with family
Family History
Family History: Other (Noncontributory)
Review of Systems
Review of Systems
Allergies reviewed?: Yes
All Other Systems: Not applicable
Phy Exam
Physical Exam
Physical Exam:
GENERAL: Alert , in no apparent distress
EYE: pupils equal and reactive
NECK: Supple
ENT: b/l TM s clear, pharynx erythematous mild hypertrophy, no exudates, tolerating secretions, normal phonation, no [employer]
CARDIAC: Regular rate and rhythm, no edema
LUNGS: Clear breath sounds bilaterally, no acute respiratory distress, no wheezes/rales/rhonchi, occ cough
ABDOMEN: Soft, without focal tenderness, no r/g, no cvat, normal bowel sounds
No flank tenderness
NEUROLOGICAL: Alert and oriented, no focal neuro deficits, cranial nerves intact, 5 out of 5 strength, sensation intact
SKIN: Warm and dry, skin intact.
MUSCULOSKELETAL: No edema, well perfused. Full range of motion of the knees bilaterally, standing, walking
PSYCH: Normal and appropriate interaction.
Course
Orders/Labs/Results
Orders:
Orders
12/08/24 20:41
Electrocardiogram (*1) Urgent
Reason for Study: Chest Pain
EKG- Treatment ONCE
Test Result ONCE
12/08/24 20:43
Complete Blood Count/With Diff Urgent
Comprehensive Metabolic Panel Urgent
HCG, Serum Qualitative Screen Urgent
Comment: Notify provider if positive test present
Troponin I Urgent
Abnormal Lab Results
12/08/24
20:43
WBC 12.8 H 10^3/uL
(4.8-10.8)
Absolute Neuts (auto) 9.0 H 10^3/uL
(1.4-6.5)
Absolute Monos (auto) 1.1 H 10^3/uL
(0.1-0.6)
Lymphocytes % 18.8 L %
(20.5-51.1)
Glucose 118 H mg/dl
(70-99)
12/08/24 20:43
12/08/24 20:43
Vital Signs
Initial and Last Documented VS:
Initial Vital Signs
Temp Pulse Resp BP Pulse Ox
36.6 C 92 16 137/83 100
12/08/24 20:38 12/08/24 20:38 12/08/24 20:38 12/08/24 20:38 12/08/24 20:38
Last Documented Vital Signs
Temp Pulse Resp BP Pulse Ox
36.4 C 88 16 119/79 95
12/08/24 23:15 12/08/24 23:15 12/08/24 23:15 12/08/24 23:15 12/08/24 23:15
MDM/Problems Addressed
Differential Diagnosis Includes:
Dehydration, electrolyte disturbance, dysrhythmia,
MDM/Problems Addressed:
24-year-old female with recent diagnosis of mono, not really eating and drinking as normally as she normally would presents after near syncopal event at work tonight. Patient says she got lightheaded and tunnel vision and went down to her right
knee but did not fully lose consciousness. She had recovered and bounced right back up and did not hit her abdomen or head. She feels back to her baseline. She thinks maybe she was just dehydrated however she was eating and drinking today well.
Her throat is still pretty sore. She had received a dose of Decadron when she was here in the department on 6�25. Her white count is 12.8 which is down from 17
Her throat culture still in progress but her rapid strep was negative. Patient's was negative. Her EKG is normal sinus rhythm with no ischemic changes and no abnormal rhythm. Patient wants to go home and is already dressed. She was
given a work note for today and tomorrow. Told to increase fluids and 1 more dose of Decadron for tomorrow
*Pulse Oximetry
SaO2: 95
Oxygen Mode of Delivery: Room air
Patient hypoxic: no (95)
*Critical Care Note
Total Time (30-74mins, 75-104mins- exclusive of procedures): Not Applicable
ED Attending Note
-
Portions of this chart may have been created with voice recognition software.� Occasional wrong word or��sound alike� substitutions may have occurred due to the inherent limitations of voice recognition software.
Discharge Plan
Departure
Patient Disposition: Home (Routine Discharge)
Date of Disposition: 12/08/24
Time of Disposition: 23:12
Patient with high blood pressure during this ER visit?: No
Condition: Fair
Covid-19: Not Applicable
Discharge Problem:
Near syncope
Instructions: Near Fainting (DC)
Prescriptions:
New
dexamethasone 6 mg tablet
6 mg PO ONCE Qty: 1 0RF
No Action
dextroamphetamine-amphetamine [Adderall] 20 mg Tablet
20 mg PO DAILY
fluoxetine 20 mg Capsule
20 mg PO DAILY
aripiprazole [Abilify] 5 mg Tablet
5 mg PO DAILY
Referrals:
UNKNOWN - PT DOES,NOT KNOW [Family Provider]
Stand Alone Forms: Return to Work
Activity Restrictions/Additional Instructions:
He likely has he passed out because of mild dehydration and some mono illness. You can drink fluids to stay hydrated. Tomorrow you can take a dose of Decadron to help with your pain in your throat. I sent this to the pharmacy. You can continue
Tylenol and ibuprofen for pain. Return for any concerns
Interventions
Interventions:
*Risk Screen - Suicide Last Done: 12/08/24 20:38
*General Assessment Last Done: 12/08/24 22:43
*Neglect/Abuse Screening Last Done: 12/08/24 20:38
*ED- Fall Risk Assessment Last Done: 12/08/24 22:43
*ED COVID-19 Vaccine History Last Done: 12/08/24 23:16
ED- Cardiac Assessment Last Done: 12/08/24 22:32
ED- Neurological Assessment Last Done: 12/08/24 22:32
Discharge Date and Time
Print Language: DIVEHI
[2024-12-08 23:25] VITALS: BP 119/79
== END 2024-12-08 23:26 | disposition home or self-care (01) ==
LOC: EMR 20:36
PROVIDERS: EMERGENCY PHYSICIAN Emergency Medicine
DX: R55 Syncope and collapse (principal); F17.290 Nicotine dependence, other tobacco product, uncomplicated
CPT/HCPCS: 99284; 80053; 84484; 84703; 85025; 93005